=== PATIENT | male | born 1955 | race Caucasian/White ===

== ENCOUNTER → 2017-06-08 | Outpatient (CLI) | payer OTHER ==
--- NOTE | 2017-06-08 15:57 | RADIOLOGY REPORT PS360 ---
CHEST(2 VIEWS-NOT PORTABLE) HISTORY: DIFFICULTY SWALLOWING LIQUIDS ORDERING PHYSICIAN: Ann Nicole APRN PATIENT AGE: 61 years COMPARISON: None available FINDINGS: The cardiomediastinal silhouette and pulmonary vascularity are within normal limits. The lungs are clear without infiltrates, suspicious nodules, or pleural effusions. No acute bony abnormalities. Minimal mid thoracic curvature convex right IMPRESSION: No acute findings, negative chest
== END ==
LOC: RAD 13:27
DX: R13.10 Dysphagia, unspecified (principal)